=== PATIENT | female | born 1930 | race Caucasian/White ===

== ENCOUNTER → 2016-07-03 | Outpatient (CLI) | payer MEDICARE, OTHER ==
[~2016-07-03] MED LIST: ALEVE 220MG220 MG PO; BENAZEPRIL40 MG PO; CENTURY ADULTS1 EACH PO; FLAXSEED340 GM PO; HCTZ 25MG25 MG PO; OSTEO BI-FLEX1 EAC1 PO; TIROSINT50 MC1 PO
== END ==
LOC: LAB 16:00
DX: I10 Essential (primary) hypertension (principal); R10.11 Right upper quadrant pain; E03.4 Atrophy of thyroid (acquired)

== ENCOUNTER → 2016-07-05 | Outpatient (CLI) | payer MEDICARE, OTHER | LOC: RAD 11:08 | DX: R10.11 Right upper quadrant pain (principal) | CPT/HCPCS: Q9967 ==

== ENCOUNTER → 2016-08-06 | Day surgery (SDC) | payer MEDICARE, OTHER ==
[2015-09-03 19:57] VITALS: BP 125/83
== END ==
LOC: MSO 08:37
DX: K29.70 Gastritis, unspecified, without bleeding (principal); K31.7 Polyp of stomach and duodenum; K21.9 Gastro-esophageal reflux disease without esophagitis; I10 Essential (primary) hypertension
CPT/HCPCS: 00740; A4649; J7120

== ENCOUNTER → 2016-08-24 | Outpatient (CLI) | payer MEDICARE, OTHER ==
[2015-09-03 19:57] VITALS: BP 125/83
== END ==
LOC: LAB 14:03
DX: R30.0 Dysuria (principal)

== ENCOUNTER → 2017-04-13 | Outpatient (CLI) | payer MEDICARE, OTHER ==
[2015-09-03 19:57] VITALS: BP 125/83
== END ==
LOC: RAD 07:55
DX: M17.11 Unilateral primary osteoarthritis, right knee (principal); M25.861 Other specified joint disorders, right knee

== ENCOUNTER → 2018-07-10 | Outpatient (CLI) | payer MEDICARE, OTHER ==
[2015-09-03 19:57] VITALS: BP 125/83
[2018-07-10 12:47] LABS: ALBUMIN 5.2 g/dL (3.5-5.0); POTASSIUM 4.4 mmol/L (3.6-5.0); TOTAL BILIRUBIN 0.8 mg/dL (0.2-1.3); TOTAL PROTEIN 8.9 g/dL (6.3-8.2)
[2018-07-10 12:50] LABS: EOS % 0.1 % (1.0-5.0); HEMATOCRIT 44.1 % (37.0-47.0); HEMOGLOBIN 14.7 g/dL (12.5-16.0); LYMPH# 2.7 (1.50-4.00); MEAN CELL VOLUME 88 fl (78-100); MEAN CORPUSCULAR HEMOGLOBIN 30 pg (27-31); MEAN CORPUSCULAR HGB CONC 33 g/dL (33-37); MEAN PLATELET VOLUME 10.1 fl (7.4-10.4); MONO # 0.6 (0.20-0.80); NEU # 6.1 (1.40-6.50); PLATELET COUNT 296 K/mm3 (130-400); RED BLOOD COUNT 4.99 M/mm3 (4.10-5.30); WHITE BLOOD COUNT 9.4 K/mm3 (4.8-10.8)
[2018-07-10 14:02] LABS: ERYTHROCYTE SEDIMENTATION RATE 3 mm/hr (0-30)
== END ==
LOC: RAD 11:44
PROVIDERS: Internal Medicine
DX: Z13.820 Encounter for screening for osteoporosis (principal); M85.89 Other specified disorders of bone density and structure, multiple sites; M65.80 Other synovitis and tenosynovitis, unspecified site; M25.511 Pain in right shoulder

== ENCOUNTER → 2018-07-30 | Outpatient (CLI) | payer MEDICARE, OTHER ==
[2015-09-03 19:57] VITALS: BP 125/83
== END ==
LOC: LAB 11:15
DX: Z12.11 Encounter for screening for malignant neoplasm of colon (principal)

== ENCOUNTER 2018-09-24 10:00 | Outpatient (RCR) | payer MEDICARE, OTHER ==
[2015-09-03 19:57] VITALS: BP 125/83
== END 2018-10-15 ==
LOC: PT
DX: M67.911 Unspecified disorder of synovium and tendon, right shoulder (principal)

== ENCOUNTER → 2018-12-09 | Outpatient (CLI) | payer MEDICARE, OTHER ==
[2018-11-08 11:08] VITALS: BP 131/75
[~2018-12-09] MED LIST changes: +ACETAMINOPHEN-H1 TA2 PO; +DOCUSATE SOD100 MG PO; +LATANOPROST 2.2.5 ML OU; +ZOFRAN4 M2 PO
[2018-12-09 10:20] LABS: CALCIUM 10.6 mg/dL (8.3-10.5)
== END ==
LOC: LAB 09:55
PROVIDERS: Internal Medicine
DX: N28.9 Disorder of kidney and ureter, unspecified (principal)

== ENCOUNTER → 2018-12-29 | Outpatient (CLI) | payer MEDICARE, OTHER ==
[2018-11-08 11:08] VITALS: BP 131/75
[2018-12-29 10:36] LABS: HEMATOCRIT 44.7 % (37.0-47.0); HEMOGLOBIN 15.2 g/dL (12.5-16.0); MEAN CELL VOLUME 84 fl (78-100); MEAN CORPUSCULAR HEMOGLOBIN 28 pg (27-31); MEAN CORPUSCULAR HGB CONC 34 g/dL (33-37); MEAN PLATELET VOLUME 8.5 fl (7.4-10.4); PLATELET COUNT 356 K/mm3 (130-400); RED BLOOD COUNT 5.35 M/mm3 (4.10-5.30); RED CELL DISTRIBUTION WIDTH 13.5 % (11.5-14.5); WHITE BLOOD COUNT 9.4 K/mm3 (4.8-10.8)
[2018-12-29 10:57] LABS: ALBUMIN 4.1 g/dL (3.4-4.8)
[2018-12-29 10:59] LABS: CALCIUM 10.4 mg/dL (8.3-10.5)
[2018-12-29 11:00] LABS: TOTAL PROTEIN 7.5 g/dL (6.2-8.1)
[2018-12-29 11:02] LABS: TOTAL BILIRUBIN 0.4 mg/dL (0.2-1.2)
[2018-12-29 11:41] LABS: LYMPHOCYTE 32 % (20-51); MONOCYTE 7 % (3-10); NEUTROPHILS 60 % (42-75)
== END ==
LOC: LAB 10:22
PROVIDERS: Internal Medicine
DX: E03.9 Hypothyroidism, unspecified (principal); I10 Essential (primary) hypertension

== ENCOUNTER 2019-01-13 13:52 | Emergency (ER) | payer MEDICARE, OTHER ==
[~2019-01-13] VITALS: Ht 160 cm; Wt 68.2 kg
[2019-01-13 14:41] LABS: EOS # 0.1 (0.04-0.40); EOS % 1.5 % (1.0-5.0); HEMATOCRIT 45.6 % (37.0-47.0); HEMOGLOBIN 15.5 g/dL (12.5-16.0); LYMPH# 2.5 (1.50-4.00); MEAN CELL VOLUME 83 fl (78-100); MEAN CORPUSCULAR HEMOGLOBIN 28 pg (27-31); MEAN CORPUSCULAR HGB CONC 34 g/dL (33-37); MEAN PLATELET VOLUME 8.3 fl (7.4-10.4); MONO # 0.8 (0.20-0.80); NEU # 3.3 (1.40-6.50); PLATELET COUNT 296 K/mm3 (130-400); RED BLOOD COUNT 5.48 M/mm3 (4.10-5.30); RED CELL DISTRIBUTION WIDTH 13.4 % (11.5-14.5); WHITE BLOOD COUNT 6.7 K/mm3 (4.8-10.8)
[2019-01-13 14:50] LABS: POTASSIUM 3.3 mmol/L (3.5-5.1); SODIUM 135 mmol/L (136-145)
[2019-01-13 14:51] LABS: CALCIUM 9.9 mg/dL (8.3-10.5)
[2019-01-13 14:52] LABS: GLUCOSE 146 mg/dL (65-105); TOTAL PROTEIN 7.1 g/dL (6.2-8.1)
[2019-01-13 14:53] LABS: CARBON DIOXIDE 30 mmol/L (23-31)
[2019-01-13 14:54] LABS: TOTAL BILIRUBIN 0.4 mg/dL (0.2-1.2)
[2019-01-13 14:57] LABS: AST-SGOT 25 U/L (5-34)
[2019-01-13 14:58] LABS: ALT/SGPT 21 U/L (0-55)
[2019-01-13 15:05] LABS: TROPONIN-I < 0.03 ng/mL (<0.030)
[2019-01-13 16:41] VITALS: BP 143/90
[2019-01-13 16:46] LABS: URINE APPEARANCE CLEAR; URINE BILIRUBIN NEGATIVE (NEGATIVE); URINE BLOOD TRACE (NEGATIVE); URINE COLOR YELLOW; URINE GLUCOSE NEGATIVE (NEGATIVE); URINE KETONE NEGATIVE (NEGATIVE); URINE LEUKOCYTE ESTERASE TRACE (NEGATIVE); URINE NITRATE NEGATIVE (NEGATIVE); URINE PROTEIN(semi-quant) TRACE mg/dL (NEGATIVE); URINE UROBILINOGEN NORMAL (NORMAL)
== END 2019-01-13 16:44 | disposition home or self-care (01) ==
LOC: ED 13:52
PROVIDERS: Nurse Practitioner Family
DX: R00.0 Tachycardia, unspecified (principal); I10 Essential (primary) hypertension; E07.9 Disorder of thyroid, unspecified; Z90.710 Acquired absence of both cervix and uterus; Z90.49 Acquired absence of other specified parts of digestive tract; Z98.890 Other specified postprocedural states

== ENCOUNTER 2019-02-25 08:30 | Outpatient (RCR) | payer MEDICARE, OTHER ==
[2018-11-08 11:08] VITALS: BP 131/75
== END 2019-03-05 | disposition still patient (30) ==
LOC: PT
DX: S42.221A 2-part displaced fracture of surgical neck of right humerus, initial encounter for closed fracture (principal)

== ENCOUNTER → 2021-04-10 | Outpatient (CLI) | payer MEDICARE, OTHER ==
[~2021-04-10] MED LIST changes: +ALBUTEROL2.5 MG/3 M IH; +DOXYCYCLINE MO100 M3 PO; +NEB; +PREDNISONE20 M1 PO; +PROAIR HFA0.09 MG/AC IH; +SYNTHROID0.05 MG PO
== END ==
LOC: RAD 08:16
DX: R05.9 Cough, unspecified (principal)

== ENCOUNTER → 2021-04-11 | Outpatient (CLI) | payer MEDICARE, OTHER | LOC: LAB 12:38 | DX: R05.9 Cough, unspecified (principal); Z20.822 Contact with and (suspected) exposure to COVID-19 ==

== ENCOUNTER 2021-04-12 11:21 | Emergency (ER) | payer MEDICARE, OTHER ==
[~2021-04-12 11:21] MED LIST changes: -ALBUTEROL2.5 MG/3 M IH; -DOXYCYCLINE MO100 M3 PO; -NEB; -PREDNISONE20 M1 PO; -PROAIR HFA0.09 MG/AC IH; -SYNTHROID0.05 MG PO
[2021-04-12] MEDS ORDERED: DOXYCYCLINE MO100 M3 PO (11:40)
[2021-04-12] MEDS ORDERED: PROAIR HFA0.09 MG/AC IH (11:40)
[2021-04-12] MEDS ORDERED: SYNTHROID0.05 MG PO (11:41)
[2021-04-12] MEDS ORDERED: PREDNISONE20 M1 PO ×2 (11:43→14:56)
[2021-04-12 12:07] LABS: HEMATOCRIT 45.2 % (37.0-47.0); HEMOGLOBIN 15.3 g/dL (12.5-16.0); MEAN CELL VOLUME 87 fl (78-100); MEAN CORPUSCULAR HEMOGLOBIN 29 pg (27-31); MEAN CORPUSCULAR HGB CONC 34 g/dL (33-37); MEAN PLATELET VOLUME 9.1 fl (7.4-10.4); PLATELET COUNT 223 K/mm3 (130-400); RED BLOOD COUNT 5.21 M/mm3 (4.10-5.30); RED CELL DISTRIBUTION WIDTH 12.8 % (11.5-14.5); WHITE BLOOD COUNT 10.2 K/mm3 (4.8-10.8)
[2021-04-12 12:15] LABS: POTASSIUM 3.2 mmol/L (3.5-5.1); SODIUM 133 mmol/L (136-145)
[2021-04-12 12:16] LABS: CALCIUM 9.4 mg/dL (8.3-10.5)
[2021-04-12 12:17] LABS: GLUCOSE 108 mg/dL (65-105)
[2021-04-12 12:18] LABS: CARBON DIOXIDE 28 mmol/L (23-31)
[2021-04-12 12:19] LABS: TOTAL BILIRUBIN 0.5 mg/dL (0.2-1.2)
[2021-04-12 12:22] LABS: AST-SGOT 31 U/L (5-34)
[2021-04-12 12:24] LABS: ALT/SGPT 22 U/L (0-55)
[2021-04-12 12:30] LABS: TROPONIN-I < 0.030 ng/mL (<0.030)
[2021-04-12 12:32] LABS: BAND 2 % (0-10); LYMPHOCYTE 24 % (20-51); MONOCYTE 19 % (3-10); NEUTROPHILS 54 % (42-75)
[2021-04-12] MEDS ORDERED: NEB (14:56)
[2021-04-12] MEDS ORDERED: ALBUTEROL2.5 MG/3 M IH (14:56)
[2021-04-12 15:15] VITALS: BP 173/86
== END 2021-04-12 15:22 | disposition home or self-care (01) ==
LOC: ED 11:21
PROVIDERS: Physician Assistant
DX: J40 Bronchitis, not specified as acute or chronic (principal); I10 Essential (primary) hypertension; E03.9 Hypothyroidism, unspecified; Z79.899 Other long term (current) drug therapy; Z79.890 Hormone replacement therapy
CPT/HCPCS: J2930